=== PATIENT | female | born 1985 | race Caucasian/White ===

== ENCOUNTER 2017-05-03 04:33 | Emergency (ER) | payer OTHER ==
[~2017-05-03] VITALS: Ht 162.6 cm; Wt 88.7 kg
[2017-05-03 04:44] VITALS: Ht 162.6 cm; Wt 88.7 kg
[2017-05-03 06:14] VITALS: BP 120/85
== END 2017-05-03 06:14 | disposition home or self-care (01) ==
LOC: ED 04:33
DX: S01.111A Laceration without foreign body of right eyelid and periocular area, initial encounter (principal); S06.0X0A Concussion without loss of consciousness, initial encounter; W18.39XA Other fall on same level, initial encounter; Y93.89 Activity, other specified; Y92.89 Other specified places as the place of occurrence of the external cause; Y99.8 Other external cause status
CPT/HCPCS: 90715; J1885; J2001

== ENCOUNTER 2017-05-10 09:15 | Emergency (ER) | payer OTHER ==
[~2017-05-10] VITALS: Ht 162.6 cm; Wt 86.2 kg
[2017-05-10 09:27] VITALS: Ht 162.6 cm; Wt 86.2 kg
[2017-05-10 10:31] VITALS: BP 124/85
== END 2017-05-10 10:31 | disposition home or self-care (01) ==
LOC: ED 09:15
DX: Z48.02 Encounter for removal of sutures (principal); I10 Essential (primary) hypertension